=== PATIENT | male | born 1970 | race Caucasian/White ===

== ENCOUNTER 2023-11-17 12:18 | Inpatient (IN) ==
[2023-11-17 12:53] LABS: Appearance Urine Clear (Clear); Bilirubin Urine Negative (Negative); Blood Urine Negative (Negative); Color Urine Yellow; Glucose Urine UA Negative (Negative); Ketones Urine Negative (Negative); Leukocyte Esterase Urine Negative (Negative); Nitrite Urine Negative (Negative); Protein Urine Negative (Negative); Specific Gravity Urine 1.021 (1.000-1.030); Urobilinogen Urine Negative (Negative)
[2023-11-17 13:30] LABS: Basophils # (auto) 0.06 K/uL (0.00-0.20); Basophils % (auto) 1.1 %; Eosinophils # (auto) 0.06 K/uL (0.00-0.50); Eosinophils % (auto) 1.1 %; Hematocrit (blood only) 49.3 % (42.0-52.0); Hemoglobin 16.9 g/dl (14.0-18.0); Immature Granulocytes # (auto) 0.05 K/uL (0.01-0.20); Immature Granulocytes % (auto) 0.9 %; Lymphocytes # (auto) 1.79 K/uL (1.20-3.40); Lymphocytes % (auto) 33.5 %; Mean Corpuscular Hemoglobin 29.8 pg (25.0-34.0); Mean Corpuscular Hgb Conc 34.3 g/dL (32.0-36.0); Mean Corpuscular Volume 86.8 fL (80.0-100.0); Mean Platelet Volume 9.3 fL (9.4-12.4); Monocytes # (auto) 0.41 K/uL (0.11-0.59); Monocytes % (auto) 7.7 %; Neutrophils # (auto) 2.98 K/uL (1.40-6.50); Neutrophils % (auto) 55.7 %; Platelet Count 246 K/uL (130-400); RDW Coefficient of Variation 13.2 % (11.5-14.5); RDW Standard Deviation 41.3 fL (36.4-46.3); Red Blood Count 5.68 M/uL (4.70-6.10); White Blood Count 5.35 K/ul (4.8-10.8)
--- NOTE | 2023-11-17 13:31 | XRay Report ---
XR chest 1V not portable CLINICAL HISTORY: Chest pain, nonspecific TECHNIQUE: Single frontal radiograph of the chest was obtained. Comparison: None available at the time of this dictation. FINDINGS: No lines and tubes are seen. The cardiomediastinal silhouette is normal. The lungs are clear. No evid ence of pleural effusion or pneumothorax. IMPRESSION: No acute chest disease. ACT 112: Negative or not required by law. Electronically signed by: Ryan Michel M.D. 11/17/2023 1:29 PM
[2023-11-17 13:46] LABS: Albumin Level 4.2 gm/dl (3.4-5.0); Bilirubin,Total 0.5 mg/dl (0.2-1.0); Calcium 9.1 mg/dl (8.6-10.3); Potassium 4.3 mmol/L (3.5-5.1)
[2023-11-17 13:52] LABS: Albumin Globulin Ratio 1.1 (0.9-2); BUN Creatinine Ratio 16.7 (10-20); Creatinine Clr Calc Pharmacy 104.7 ml/min; Est GFR (African American) 85.2 ml/min; Est GFR (Non-African American) 73.5 ml/min; Globulin 3.7 gm/dl (2.5-4.0); Total Protein 7.9 gm/dl (6.0-8.3)
[2023-11-17 13:54] LABS: INR 0.9 (0.9-1.1); Partial Thromboplastin Time 26 Seconds (21-31); Prothrombin Time 10.3 Seconds (9.0-12.0)
[2023-11-17 13:57] LABS: Troponin I High Sensitivity 10.8 pg/ml (0-20)
[2023-11-17] MEDS: hydrALAZINE HCL 20 MG/ML VIAL IV ONE (14:09)
[2023-11-17 14:14] LABS: Magnesium 2.3 mg/dl (1.7-2.4)
--- NOTE | 2023-11-17 14:43 | Cardiology Consultation ---
Date of Consultation November 17, 2023 Assessment & Plan (1) Complete heart block: (2) Fatigue: (3) Hypertension: Plan Patient found to have CHB yesterday during PCP office visit. Declined ER yesterday and presented here today. EKG again demonstrating CHB. No significant symptoms other than generalized fatigue x several months. Labs thus far are unremarkable. Lyme negative. HS troponin unremarkable. CBC and CMP WNL. Normal electrolytes TSH is pending Patient significantly hypertensive. Non compliant with outpatient losartan. No symptoms. Resume losartan 100 and amlodipine initiated at 5 mg Titrate as needed. Already received hydralazine 5 mg IV. Avoid AV margo blocking agents right now with CHB. Echocardiogram is pending. Further recommendations pending evaluation with Dr. Rothman. Case discussed with Dr. Rothman I spent a total of 45 minutes on the date of service in preparation, delivery, and documentation of the care provided to this patient, excluding any time spent in the performance of separately billed services. Ana Paula Haque PA-C Department of Cardiology, [facility] This chart was completed in part utilizing Speech Voice Recognition Software. Grammatical errors, random word insertions, pronoun errors, and incomplete sentences are an occasional consequence of this system due to software limitations, ambient noise, and hardware issues. Any formal questions or concerns about the content, text, or information contained within the body of this dictation should be directly addressed to the provider for clarification. Supervising Physician Co-Signing Physician Notes I have personally performed a history and physical examination on the patient. I have reviewed the advance practitioner's documentation, and I agree with, and take responsibility for the plan of care. 53-year-old male presented to his primary care physician office yesterday for routine evaluation. Complaints of fatigue and decreased stamina. Significant bradycardia with ECG evidence of complete heart block noted. ER evaluation recommended, however, patient declined yesterday 11/16/2023. Agreed to come to the hospital today for further evaluation and treatment. ECG again confirms presence of third-degree AV block, with right bundle branch block. Heart rate in the 30s. Hypertensive on presentation with systolic blood pressure in excess of 200 mmHg. Denies chest pain or unusual shortness of breath. Admits to episodes of lightheadedness and dizziness more than 3 months ago however no recent symptoms reported. Intermittently noncompliant with antihypertensive therapies. Baseline TSH, and Lyme screen within normal limits. Other baseline labs including CBC and comprehensive metabolic panel within acceptable range. No obvious reversible causes heart block identified. Preliminary review of bedside echocardiogram demonstrates preserved LV systolic function, no significant valvular pathology, mild concentric left ventricular hypertrophy, no evidence of pulmonary hypertension or pericardial effusion. Patient will require pacemaker implantation. Electrophysiology consulted. I spent a total of 30 minutes on the date of service in preparation, delivery, and documentation of the care provided to this patient, excluding any time spent in the performance of separately billed services. History of Present Illness Reason for Consultation: Complete Heart Block Requesting Physician: Dr. Almeida Attending Physician: Dr. Rothman History of Present Illness Patient is a 53 year old male who went to see PCP yesterday for yearly follow up regarding HTN. He was found to be bradycardic on vital signs. EKG obtained demonstrating complete heart block with ventricular escape rhythm at 38 bmp. BP was also significantly hypertensive. He reports non compliance with losartan, only taking it "occasionally" It was advised patient come to the ER, but patient declined, stating he would come today. No recent illness, rashes, tick bites. He reports increased fatigue over the last few months but no other symptoms. No chest pain or dyspnea. No lightheadedness. No syncope or near syncope. He arrives today to the ER, and EKG once again confirms CHB with HR in the 30's. He denies acute symptoms today. Mild fatigue noted. No headache or vision changes. Labs are unremarkable thus far including CBC, BMP, electrolytes, lyme testing. TSH is pending. BP significantly elevated on arrival. Treated with IV hydralazine. Patient denies personal history of cardiovascular disease. He is to take losartan 100 mg daily at home for HTN but is non compliant. Amlodipine was added yesterday for BP but did not start. Other history includes: 1. Hypertension 2. Obesity 3. Chronic alcohol use 4. Chronic tobacco abuse Allergies Allergy/AdvReac Type Severity Reaction Status Date / Time No Known Allergies Allergy Unverified 11/17/23 12:29 Home Medications Medication Instructions Recorded Confirmed Type allopurinol 100 mg tablet 100 mg PO DAILY 11/17/23 11/17/23 History amlodipine 5 mg tablet 5 mg PO DAILY 11/17/23 11/17/23 History colchicine 0.6 mg tablet 0.6 mg PO DAILY 11/17/23 11/17/23 History duloxetine 30 mg capsule,delayed 30 mg PO DAILY 11/17/23 11/17/23 History release losartan 100 mg tablet 100 mg PO DAILY 11/17/23 11/17/23 History Patient History Social History Smoking Status: Current every day smoker Tobacco Type: Cigarettes Hx Substance Use: Yes Preferred Language: Romanian Feels Safe at Home: Yes Review of Systems Review of Systems: All systems reviewed & are unremarkable except as noted in HPI & below Physical Exam Constitutional: WD/WN, vitals as above + obese; no acute distress Respiratory: no labored breathing and no cough Auscultation: + diminished lung sounds; no crackles and no rales Cardiovascular: Rate/Rhythm: regular rhythm and + bradycardic Heart Sounds: no murmur (distant heart sounds but no audible murmur) Vessels: no JVD Extremities: no edema Gastrointestinal (Abdomen): normal bowel sounds, soft, nontender, no hepatosplenomegaly Skin: no rashes, warm and dry Neurologic: PERRL, EOMI, accommodation nl, no face palsy, no dysarthria Psychiatric: A+Ox3, euthymic affect Results & Data Vital Signs (Past 12 Hours) Vital Signs Temp Pulse Pulse Resp BP BP Pulse Ox 11/17/23 14:19 39 L 11/17/23 14:02 39 L 20 239/87 H 97 11/17/23 13:55 11/17/23 13:53 40 L 20 97 11/17/23 12:29 36 C L 43 L 20 239/93 H 99 O2 Del Method 11/17/23 14:19 11/17/23 14:02 Room Air 11/17/23 13:55 Room Air 11/17/23 13:53 Room Air 11/17/23 12:29 Room Air Laboratory Results Cardiac Enzymes 11/17/23 Range/Units 13:00 AST 31 (13-39) U/L Troponin I High Sens 10.8 (0-20) pg/ml Coagulation 11/17/23 Range/Units 13:00 PT 10.3 (9.0-12.0) Seconds APTT 26 (21-31) Seconds CBC 11/17/23 Range/Units 13:00 WBC 5.35 (4.8-10.8) K/ul RBC 5.68 (4.70-6.10) M/uL Hgb 16.9 (14.0-18.0) g/dl Hct 49.3 (42.0-52.0) % Plt Count 246 (130-400) K/uL Neut # (Auto) 2.98 (1.40-6.50) K/uL Lymph # (Auto) 1.79 (1.20-3.40) K/uL [place] # (Auto) 0.41 (0.11-0.59) K/uL Eos # (Auto) 0.06 (0.00-0.50) K/uL Baso # (Auto) 0.06 (0.00-0.20) K/uL Comprehensive Metabolic Panel 11/17/23 Range/Units 13:00 Sodium 136 (136-145) mmol/L Potassium 4.3 (3.5-5.1) mmol/L Chloride 102 (98-107) mmol/L Carbon Dioxide 22 (21-32) mmol/L BUN 19 (6-23) mg/dl Creatinine 1.14 (0.6-1.4) mg/dl Glucose 124 H (70-99(Fasting)) mg/dl Calcium 9.1 (8.6-10.3) mg/dl AST 31 (13-39) U/L ALT 25 (7-52) U/L Alkaline Phosphatase 85 (34-104) U/L Total Protein 7.9 (6.0-8.3) gm/dl Albumin 4.2 (3.4-5.0) gm/dl Intake and Output 11/16/23 11/17/23 11/17/23 22:59 06:59 14:59 Other: Weight 124.2 kg Weight Measurement Method Chair Scale Patient Weight 11/18/23 06:59 Weight 124.2 kg Diagnostic Findings Telemetry reviewed: CHB with HR in the 40's EKG on arrival to the ER: CHB with RBBB Inferolateral T wave inversions EKG reviewed from 11/16/23: CHB with ventricular escape at 38 bmp RBBB Possible inferolateral T wave inversions Echocardiogram pending Chest xray: No acute process Medications Administered Medications allopurinol 100 mg tablet 100 mg PO DAILY 11/17/23 [History Confirmed 11/17/23] amlodipine 5 mg tablet 5 mg PO DAILY 11/17/23 [History Confirmed 11/17/23] colchicine 0.6 mg tablet 0.6 mg PO DAILY 11/17/23 [History Confirmed 11/17/23] duloxetine 30 mg capsule,delayed release 30 mg PO DAILY 11/17/23 [History Confirmed 11/17/23] losartan 100 mg tablet 100 mg PO DAILY 11/17/23 [History Confirmed 11/17/23]
[2023-11-17] MEDS ORDERED: ALUMINUM/MAGNESIUM SUSP 30 ML UDC PO PRN (14:59)
[2023-11-17] MEDS ORDERED: ONDANSETRON INJ 2 MG/ML 2 ML VIAL IV PRN (14:59)
[2023-11-17] MEDS ORDERED: POLYETHYLENE (MIRALAX) 17 GM PACK PO PRN (14:59)
[2023-11-17] MEDS ORDERED: ACETAMINOPHEN 325 MG TAB PO PRN (14:59)
[2023-11-17 15:02] LABS: Thyroid Stimulating Hormone 1.665 uIu/ml (0.300-4.500)
--- NOTE | 2023-11-17 15:22 | History & Physical Report ---
Date of Service November 17, 2023 Assessment & Plan (1) Complete heart block: Plan 53-year-old male with PMH of idiopathic chronic gout, HTN, primary osteoarthritis/chronic knee pain, obese class II was sent to the ED at referral of PCP office for high degree heart block and bradycardia, asymptomatic. He is being managed for the following: complete heart block Bradycardia 11/16/2023 EKG at PCP office with complete heart block with idioventricular es cape rhythm with marked bradycardia. Ventricular rate 38, atrial rate 100, QRS duration 162, QTc 456. Patient denies any symptoms, loss of consciousness, chest pain/palpitation/dizziness. Patient reports feeling fatigue for about 2 months. Admitting labs including CBC and BMP and LFT and urine analysis fairly normal Anaplasma smear negative, Lyme disease screen negative.Troponin 10.8. TSH WNL CXR with no acute finding. admitting EKG redemonstrated CHB echo, plan is to take him to the OR for pacer placement today. Cardiology on board, appreciate recommendation. Hypertensive urgency: Blood pressure at 239/93 at presentation, received IV hydralazine at ED, avoid beta-case given CHB. Continue home blood pressure medication, hydralazine as needed for blood pressure management. Blood pressure yesterday was 150/80 mmHg at PCP office. Heart healthy diet/low-sodium diet when able. Continue to titrate medication. other chronic medical conditions: Chronic gout, chronic knee pain - continue with/resume home meds as and when able. DVT prophylaxis: SCDs today, heparin subcu from tomorrow. Pacer placement today. 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 Patient was seen at PCP office yesterday, recommended ED evaluation yesterday, patient chose to come today. Patient denies any symptoms/loss of consciousness/chest pain/palpitations/dizziness/shortness of breath. Patient denies any fever/cough/sore throat/abdominal pain/acute changes in his bowel or bladder habits/acute changes in his appetite. Patient reports compliance with medication but does not know what medications he takes. Hence outpatient chart was reviewed for current medications. He takes amlodipine 5 mg daily in the morning, losartan 100 mg daily in the morning, duloxetine 30 mg daily in the morning, allopurinol 100 mg daily in the morning. Plan of care discussed in detail with the patient, he voiced understanding and was agreeable. Discussed with Patient's RN, patient is being taken to [facility] for pacer placement. Patient reports not eating anything in the morning, hence is NPO. Full code as per my discussion with the patient. Allergies Allergy/AdvReac Type Severity Reaction Status Date / Time No Known Allergies Allergy Unverified 11/17/23 12:29 Home Medications Medication Instructions Recorded Confirmed Type allopurinol 100 mg tablet 100 mg PO DAILY 11/17/23 11/17/23 History amlodipine 5 mg tablet 5 mg PO DAILY 11/17/23 11/17/23 History colchicine 0.6 mg tablet 0.6 mg PO DAILY 11/17/23 11/17/23 History duloxetine 30 mg capsule,delayed 30 mg PO DAILY 11/17/23 11/17/23 History release losartan 100 mg tablet 100 mg PO DAILY 11/17/23 11/17/23 History Past Med/Surg History Problem List (Updated 11/17/23 @ 15:03 by Ana Paula Haque PA-C) Hypertension Fatigue Complete heart block Social History Smoking Status: Current every day smoker Tobacco Type: Cigarettes Hx Substance Use: Yes Preferred Language: Maldivian Feels Safe at Home: Yes Review of Systems Review of Systems: Negative otherwise mentioned in HPI. Physical Exam Physical Exam: GENERAL: Alert and oriented x3. NAD, on RA. Obese class II. HEENT: No pallor, no icterus. Pupils equal, round and reactive to light. Oral mucosa moist. NECK: No JVD, no neck masses. HEART: S1 and S2 heard. Regular rate and rhythm. Bradycardia. No murmur, no gallop. RESPIRATORY SYSTEM: Normal AP diameter. No accessory muscle use. No wheezing, no crackles. ABDOMEN: Soft, bowel sounds present, nontender, no distention. CENTRAL NERVOUS SYSTEM: No facial droop. Speech is clear. Obeys simple commands. Moves extremities. EXTREMITIES: No edema, no erythema seen. Results & Data Results & Data Vital Signs (Past 12 Hours) Vital Signs Temp Pulse Pulse Resp BP BP Pulse Ox 11/17/23 14:19 39 L 11/17/23 14:02 39 L 20 239/87 H 97 11/17/23 13:55 11/17/23 13:53 40 L 20 97 11/17/23 12:29 36 C L 43 L 20 239/93 H 99 O2 Del Method 11/17/23 14:19 11/17/23 14:02 Room Air 11/17/23 13:55 Room Air 11/17/23 13:53 Room Air 11/17/23 12:29 Room Air
[2023-11-17] MEDS: ceFAZolin 330 MG/ML 1 GM VIAL ONE (15:45)
[2023-11-17] MEDS: BUPIVACAINE 0.25% PF 30 ML VIAL ONE (16:49)
[2023-11-17] MEDS: fentaNYL citrate PF 100 MCG/2 ML VIAL ONE (16:50)
[2023-11-17] MEDS: VANCOMYCIN HCL 1000MG/20ML VIAL ONE (16:50)
[2023-11-17] MEDS: MIDAZOLAM HCL 5 MG/ML 1 ML VIAL ONE (16:50)
[2023-11-17] MEDS: LIDOCAINE 1% LOCAL 20 ML VIAL ONE (16:50)
--- NOTE | 2023-11-17 16:50 | Emergency Department Note ---
Impression & Plan Complete heart block, Hypertension ED Provider Note CHIEF COMPLAINT: Shortness of breath, abnormal EKG HISTORY OF PRESENT ILLNESS: This 53-year-old male patient with past medical history of hypertension, obesity, mood disorder presents to the emergency department with complaints of abnormal EKG after being seen by his PCP yesterday. The patient was referred to the emergency department yesterday however he refused. He signed out AMA from his PCPs office. Today his got off of work so they decided to come to the emergency department for evaluation. Patient denies any syncopal episodes or chest pain. He has been feeling some shortness of breath periodically. He does go outside quite a bit per his , but has no known tick bites. REVIEW OF SYSTEMS: A review of systems was performed with positives and pertinent negatives listed in the history of present illness. 10 systems were reviewed and are otherwise negative. ALLERGIES: see below MEDICATIONS: see below PMH: see below SOCIAL HISTORY: see below DDx: Cardiac arrhythmia, electrolyte abnormality, dehydration, acute coronary syndrome, metabolic abnormality, among others. PHYSICAL EXAM: Vital signs reviewed. General: Well-appearing 53-year-old male, in no significant distress. HEENT: No scleral icterus, PERRLA, neck supple. Atraumatic. Cardiovascular: Bradycardic and irregular. Pulmonary: Clear to auscultation bilaterally, normal work of breathing. Abdomen: Soft, obese, nontender, nondistended, positive bowel sounds. Musculoskeletal: Atraumatic, no peripheral edema. Neurologic: Patient awake alert and oriented x 3, speech is clear Skin: Warm, dry, no rash EMERGENCY DEPARTMENT COURSE/MDM: This pt was evaluated and appeared to be in no distress. IV access was obtained and lab work was drawn. Pt was placed on the air sampling and monitoring and noted to be in a complete heart block. EKG confirms.Pt is noted to be hypertensive and given 5 mg IV hydralazine. Lab work reveals a neg lyme, normal TSH and no significant electrolyte abnl. Pt was d/w Dr. Rothman of cardiology and the hospitalist service who will evaluate the pt for further management. He will RTED for worsening of symptoms or any medical concerns. MONITORING: An order for cardiac monitoring was placed and the patient is noted to be in a complete heart block at 40 beats per minute. RADIOLOGY: Chest x-ray to my interpretation reveals no evidence of focal lung consolidation or failure. EKG: To my interpretation reveals a complete heart block at 43 bpm. Right bundle branch block, QTc of 436. T wave abnormality, no previous EKGs available. DISPOSITION: Admission Past Med/Surg History Problem List (Updated 11/19/23 @ 20:07 by Brooklyn Almeida MD) Hypertension (Acute) Fatigue Complete heart block (Acute) Social History Smoking Status: Current every day smoker Tobacco Type: Cigarettes Hx Alcohol Use: Yes Alcohol type: beer Hx Substance Use: Yes Preferred Language: Armenian Communication Ability: Effective Soft Sugar Supervisor Required: No Beliefs That Will Affect Care: None Current Living Situation: Family Feels Safe at Home: Yes Allergies Allergies Allergy/AdvReac Type Severity Reaction Status Date / Time chlorpromazine AdvReac Muscle Pain Verified 11/17/23 19:36 [From Thorazine] Home Meds Home Medications Medication Instructions Recorded Confirmed allopurinol 100 mg tablet 100 mg PO DAILY 11/17/23 11/17/23 amlodipine 5 mg tablet 5 mg PO DAILY 11/17/23 11/17/23 colchicine 0.6 mg tablet 0.6 mg PO DAILY 11/17/23 11/17/23 duloxetine 30 mg capsule,delayed 30 mg PO DAILY 11/17/23 11/17/23 release losartan 100 mg tablet 100 mg PO DAILY 11/17/23 11/17/23 Previous Rx's Medication Instructions Recorded metoprolol succinate 25 mg 25 mg PO QAM 30 days #30 tabs 11/18/23 tablet,extended release 24 hr Results & Data (ED) Vital Signs Vital Signs - 24 hr 11/17/23 12:29 11/17/23 13:53 11/17/23 13:55 Temperature 36 C L Temperature Source Temporal Artery Scan Pulse Rate 43 L 40 L Pulse Rate [Apical] Pulse Rhythm Regular Pulse Rhythm [Apical] Pulse Strength Normal Pulse Strength [Apical] Respiratory Rate 20 20 Respiratory Effort / Characteristics Non-Labored Spontaneous Respiratory Depth Normal Respiratory Pattern Regular Blood Pressure 239/93 H Blood Pressure [Left Arm] Blood Pressure Mean 141 Blood Pressure Mean [Left Arm] Blood Pressure Position Sitting Blood Pressure Position [Left Arm] Pulse Oximetry 99 97 Oxygen Delivery Method Room Air Room Air Room Air Sepsis Recent Fever Within 48 Hours No Sepsis New/Unexplained Change in Mental Status No Sepsis Action Taken by Nursing No Action Required 11/17/23 14:02 11/17/23 14:19 11/17/23 15:11 Temperature Temperature Source Pulse Rate 39 L Pulse Rate [Apical] 39 L 39 L Pulse Rhythm Pulse Rhythm [Apical] Regular Pulse Strength Pulse Strength [Apical] Normal Respiratory Rate 20 Respiratory Effort / Characteristics Non-Labored Non-Labored Spontaneous Normal for Patient Respiratory Depth Normal Normal Respiratory Pattern Regular Regular Blood Pressure Blood Pressure [Left Arm] 239/87 H 213/81 H Blood Pressure Mean Blood Pressure Mean [Left Arm] 137 125 Blood Pressure Position Blood Pressure Position [Left Arm] Sitting Lying Pulse Oximetry 97 97 Oxygen Delivery Method Room Air Room Air Sepsis Recent Fever Within 48 Hours Sepsis New/Unexplained Change in Mental Status Sepsis Action Taken by [facility] Medications Current Medication List: was personally reviewed by me Laboratory Data Attestation: I reviewed the patient's lab results. 11/17/23 13:00 11/17/23 13:00 Lab Results 11/17/23 11/17/23 Range/Units 12:36 13:00 WBC 5.35 (4.8-10.8) K/ul RBC 5.68 (4.70-6.10) M/uL Hgb 16.9 (14.0-18.0) g/dl Hct 49.3 (42.0-52.0) % MCV 86.8 (80.0-100.0) fL MCH 29.8 (25.0-34.0) pg MCHC 34.3 (32.0-36.0) g/dL RDW Std Deviation 41.3 (36.4-46.3) fL RDW Coeff of Ashley 13.2 (11.5-14.5) % Plt Count 246 (130-400) K/uL MPV 9.3 L (9.4-12.4) fL Immature Gran % (Auto) 0.9 % Neut % (Auto) 55.7 % Lymph % (Auto) 33.5 % [place] % (Auto) 7.7 % Eos % (Auto) 1.1 % Baso % (Auto) 1.1 % Neut # (Auto) 2.98 (1.40-6.50) K/uL Lymph # (Auto) 1.79 (1.20-3.40) K/uL [place] # (Auto) 0.41 (0.11-0.59) K/uL Eos # (Auto) 0.06 (0.00-0.50) K/uL Baso # (Auto) 0.06 (0.00-0.20) K/uL Immature Gran # (Auto) 0.05 (0.01-0.20) K/uL PT 10.3 (9.0-12.0) Seconds INR 0.9 (0.9-1.1) APTT 26 (21-31) Seconds PTT Ratio 1.0 Sodium 136 (136-145) mmol/L Potassium 4.3 (3.5-5.1) mmol/L Chloride 102 (98-107) mmol/L Carbon Dioxide 22 (21-32) mmol/L Anion Gap 12 H (3-11) BUN 19 (6-23) mg/dl Creatinine 1.14 (0.6-1.4) mg/dl Est Cr Clr Drug Dosing 104.7 ml/min Est GFR ( Amer) 85.2 ml/min Est GFR (Non-Af Amer) 73.5 ml/min BUN/Creatinine Ratio 16.7 (10-20) Glucose 124 H (70-99(Fasting)) mg/dl Calcium 9.1 (8.6-10.3) mg/dl Magnesium 2.3 (1.7-2.4) mg/dl Total Bilirubin 0.5 (0.2-1.0) mg/dl AST 31 (13-39) U/L ALT 25 (7-52) U/L Alkaline Phosphatase 85 (34-104) U/L Troponin I High Sens 10.8 (0-20) pg/ml Total Protein 7.9 (6.0-8.3) gm/dl Albumin 4.2 (3.4-5.0) gm/dl Globulin 3.7 (2.5-4.0) gm/dl Albumin/Globulin Ratio 1.1 (0.9-2) TSH 1.665 (0.300-4.500) uIu/ml Urine Color Yellow Urine Appearance Clear (Clear) Urine pH 5.0 (4.5-7.5) Ur Specific [place] 1.021 (1.000-1.030) Urine Protein Negative (Negative) Urine Glucose (UA) Negative (Negative) Urine Ketones Negative (Negative) Urine Blood Negative (Negative) Urine Nitrite Negative (Negative) Urine Bilirubin Negative (Negative) Urine Urobilinogen Negative (Negative) Ur Leukocyte Esterase Negative (Negative) Anaplasma Smear See Comment Lyme Disease Screen Negative (Negative) Administered Medications Discontinued Medications Allopurinol (Allopurinol 100 Mg Tab) 100 mg PO DAILY [facility] Stop: 12/18/23 08:59 Last Admin: 11/18/23 08:42 Dose: 100 mg Documented By: MARY Amlodipine Besylate (Amlodipine Besylate 5 Mg Tab) 5 mg PO DAILY [facility] Stop: 12/18/23 08:59 Last Admin: 11/18/23 08:42 Dose: 5 mg Documented By: MARY Bupivacaine HCl (Bupivacaine 0.25% Pf 30 Ml Vial) Confirm Administered Dose 30 ml .ROUTE .STK-MED [facility] Stop: 11/17/23 15:00 Last Admin: 11/17/23 16:49 Dose: 30 ml Documented By: VIRIDIANA Cefazolin Sodium (Cefazolin 330 Mg/Ml 1 Gm Vial) Confirm Administered Dose 2,970 mg .ROUTE .STK-[facility] Stop: 11/17/23 15:24 Last Admin: 11/17/23 15:45 Dose: 2,970 mg Documented By: [employer]DER Clonidine HCl (Clonidine Hcl 0.1 Mg Tab) 0.1 mg PO NOW [facility] Stop: 11/18/23 00:08 Last Admin: 11/18/23 00:15 Dose: 0.1 mg Documented By: AM Colchicine (Colchicine 0.6 Mg Tab) 0.6 mg PO DAILY [facility] Stop: 12/18/23 08:59 Last Admin: 11/18/23 08:43 Dose: 0.6 mg Documented By: MARY Duloxetine HCl (Duloxetine Hcl 30 Mg Cap) 30 mg PO DAILY [facility] Stop: 12/18/23 08:59 Last Admin: 11/18/23 08:43 Dose: 30 mg Documented By: MARY Fentanyl Citrate (Fentanyl Citrate Pf 100 Mcg/2 Ml Vial) Confirm Administered Dose 100 mcg .ROUTE .STK-MED ONE Stop: 11/17/23 15:24 Last Admin: 11/17/23 16:50 Dose: 100 mcg Documented By: [employer] Folic Acid (Folic Acid 1 Mg Tab) 1 mg PO QAM [facility] Stop: 12/18/23 08:59 Last Admin: 11/18/23 08:42 Dose: 1 mg Documented By: MARY Gabapentin (Gabapentin 600 Mg Tab) 600 mg PO NOW ONE Stop: 11/17/23 20:02 Last Admin: 11/17/23 21:07 Dose: 600 mg Documented By: AM Gabapentin (Gabapentin 100 Mg Cap) 100 mg PO Q6H [facility] Stop: 11/18/23 12:01 Last Admin: 11/18/23 11:07 Dose: 100 mg Documented By: Admin: 11/18/23 06:24 Dose: 100 mg Documented By: JUDITH Hydralazine HCl (Hydralazine Hcl 20 Mg/Ml Vial) 5 mg IV NOW ONE Stop: 11/17/23 14:03 Last Admin: 11/17/23 14:09 Dose: 5 mg Documented By: JEANA Hydralazine HCl (Hydralazine Hcl 20 Mg/Ml Vial) 5 mg IV Q4H PRN PRN Reason: SBP > 190 mmHg Stop: 12/17/23 15:21 Last Admin: 11/17/23 18:06 Dose: 5 mg Documented By: PRATIBHA Cefazolin Sodium (Ancef 2000mg) 2,000 mg in 15 mls @ 3.75 mls/min IV ONE ONE; Protocol Stop: 11/17/23 23:33 Last Admin: 11/18/23 00:01 Dose: 3.75 mls/min Documented By: JUDITH Multivitamins 10 ml/ Thiamine HCl 100 mg/ Folic Acid 1 mg/Sodium Chloride 1,011.2 mls @ 500 mls/hr IV .Q2H2M ONE Stop: 11/17/23 22:16 Last Infusion: 11/17/23 23:17 Dose: Infused Documented By: Admin: 11/17/23 21:07 Dose: 500 mls/hr Documented By: JUDITH Lorazepam 1 mg/ Syringe 1 mls @ 2 mls/min IV UD PRN; Protocol PRN Reason: EtOH Withdrawal AWSS Score 6,7 Stop: 12/17/23 20:00 Last Admin: 11/17/23 21:42 Dose: 2 mls/min Documented By: JUDITH Lidocaine HCl (Lidocaine 1% Local 20 Ml Vial) Confirm Administered Dose 20 ml .ROUTE .STK-MED ONE Stop: 11/17/23 15:00 Last Admin: 11/17/23 16:50 Dose: 20 ml Documented By: VIRIDIANA Lorazepam (Lorazepam 1 Mg Tab) 1 mg PO NOW [facility] Stop: 11/18/23 00:02 Last Admin: 11/18/23 00:15 Dose: 1 mg Documented By: AM Losartan Potassium (Losartan Potassium 50 Mg Tab) 100 mg PO DAILY [facility] Stop: 12/18/23 08:59 Last Admin: 11/18/23 08:42 Dose: 100 mg Documented By: MARY Melatonin (Melatonin 3 Mg Tab) 3 mg PO HS PRN PRN Reason: Sleep Stop: 12/18/23 00:00 Last Admin: 11/18/23 00:18 Dose: 3 mg Documented By: AM Metoprolol Succinate (Metoprolol Succ 25mg Ext Rel Tab) [facility] Stop: 12/18/23 09:14 Last Admin: 11/18/23 11:07 Dose: 25 mg Documented By: MARY Midazolam HCl (Midazolam Hcl 5 Mg/Ml 1 Ml Vial) Confirm Administered Dose 5 mg .ROUTE .STK-MED ONE Stop: 11/17/23 15:23 Last Admin: 11/17/23 16:50 Dose: 5 mg Documented By: CATIA Sterile Water (Water, Sterile For Inj 10 Ml Vial) Confirm Administered Dose 10 ml .ROUTE .STK-MED ONE Stop: 11/17/23 15:00 Last Admin: 11/17/23 18:01 Dose: Not Given Documented By: PRATIBHA Thiamine HCl (Thiamine Hcl 100 Mg Tab) [facility] [place] Stop: 12/18/23 08:59 Last Admin: 11/18/23 08:41 Dose: 100 mg Documented By: MARY Vancomycin HCl (Vancomycin Hcl 1000mg/20ml Vial) Confirm Administered Dose 50 mg .ROUTE .STK-MED ONE Stop: 11/17/23 15:00 Last Admin: 11/17/23 16:50 Dose: 50 mg Documented By: ABHISHEKK Imaging Data Radiologist's Impression: Chest X-Ray 11/17/23 12:34 XR chest 1V not portable CLINICAL HISTORY: Chest pain, nonspecific TECHNIQUE: Single frontal radiograph of the chest was obtained. Comparison: None available at the time of this dictation. FINDINGS: No lines and tubes are seen. The cardiomediastinal silhouette is normal. The lungs are clear. No evidence of pleural effusion or pneumothorax. IMPRESSION: No acute chest disease. ACT 112: Negative or not required by law. Electronically signed by: Ryan Michel M.D. 11/17/2023 1:29 PM Discharge Plan Visit Data Chief Complaint: Bradycardia Stated Complaint: REFERRED BY DR/PULSE 38 ED Provider: Brooklyn Almeida Discharge Problem: Complete heart block, Hypertension Patient Disposition: Admitted As Inpatient Discharge Instructions Interventions: ED Discharge Assessment Last Done: 11/17/23 15:05 Discharge Problem: Hypertension Qualifiers: Hypertension type: primary hypertension Qualified Code(s): I10 - Essential (primary) hypertension
[2023-11-17] MEDS ORDERED: oxyCODONE HCL IR 5 MG TAB (IMMEDIATE RELEASE) PO PRN (17:02)
--- NOTE | 2023-11-17 17:02 | Electrophysiology Report ---
Date of Service November 17, 2023 Electrophysiology Procedure Electrophysiology Procedure Report Procedure performed: Implantation of dual-chamber permanent pacemaker with left bundle pacing lead Staff drafter assistant: Camron Jama MD Indication: The patient is a 53-year-old gentleman who presents to the emergency room with bradycardia and complete heart block. He was felt to be a good candidate for permanent pacemaker due to symptomatic nonreversible AV node dysfunction. Dual-chamber device was selected as he is currently in sinus rhythm which to maintain AV synchrony. Procedure in detail: The patient was informed of the risks benefits and alternatives to the intended procedure and she wished to proceed. She was taken to the electrophysiology suite in a fasting state. A preoperative antibiotic had been administered. The patient was monitored electrocardiographically throughout today's procedure and conscious sedation was administered per protocol. The left upper pectoral area is prepped and draped in usual sterile fashion. This area was anesthetized using subcutaneous administration of a xylocaine solution. An incision was made at this site and carried down to the prepectoralis fascia using sharp dissection. Electrocautery was also employed for dissection as well as for hemostasis. A device pocket was fashioned tissues above the pectoralis muscle. Subsequent to this maneuver the left axillary vein was accessed using modified Seldinger technique. A sheath was placed over guidewire and used facilitate passage of the guiding catheter for mapping of the interventricular septum. Once appropriate location was identified the pacing lead was advanced into the interventricular septum under fluoroscopic guidance. Adequate electrophysiologic characteristics were obtained prior to removal of the catheter and sheath. Proximal portion lead was then sutured to prepectoralis fascia using nonabsorbable suture. A sheath was placed over the remaining guidewire and used facilitate passage of a pacing lead to the right atrium under fluoroscopic guidance. Adequate sensing threshold parameters were obtained prior to active fixation of this lead to the endocardial surface. The proximal portion lead was then sutured to prepectoralis fascia using nonabsorbable suture. The device pocket was irrigated with antibiotic solution. The leads were then attached to the device. The device and leads were then placed in the pocket and pocket was closed in 3 layers of absorbable suture. Steri-Strips and sterile dressing were applied. The device was tested noninvasively prior to conclusion the procedure. The patient tolerated procedure well there no i mmediate complications. Equipment used: New pulse generator: Title Specialist urturn. Model number:[id number] serial number [id number] Right atrial lead: Title Specialist [employer]. Model number: 5076 serial number [id number] Right ventricular lead: Title Specialist [employer]. Model number: 3830 serial number [id number] Measured data: Right atrial lead: P-waves measured 4.5 mV. Pacing threshold was 1.5 volts at 0.4 milliseconds with a pacing impedance of 684 Ohms Right ventricular lead: R-waves measured 8.5 mV. Pacing threshold 0.5 volts at 0.4 milliseconds with a pacing impedance of 855 Ohms Impression: Successful implantation of dual-chamber permanent pacemaker with left bundle pacing lead [facility] Electrophysiology codes Pacing Procedure 1: Pacin Insert/Replace Pacer A & V PG Moderate Sedation Codes Moderate Sedation Codes Procedure 1: Sedation/Anesthesia: 17611 Mod Sedation by the same physician;Init15 Min Child Age 5 & Up Procedure 2: Sedation/Anesthesia: 30497 Mod Sedation by the same physician; Ea [id number] Minutes
--- NOTE | 2023-11-17 17:02 | Post Anesthesia Assessment ---
Date of Service November 17, 2023 Post Sedation Assessment Vital Signs Temp Pulse Pulse Resp BP BP Pulse Ox 11/17/23 15:11 39 L 213/81 H 97 11/17/23 14:19 39 L 11/17/23 14:02 39 L 20 239/87 H 97 11/17/23 13:55 11/17/23 13:53 40 L 20 97 11/17/23 12:29 36 C L 43 L 20 239/93 H 99 O2 Del Method 11/17/23 15:11 Room Air 11/17/23 14:19 11/17/23 14:02 Room Air 11/17/23 13:55 Room Air 11/17/23 13:53 Room Air 11/17/23 12:29 Room Air Recovery Score Activity: Moves 4 extremities Respiration: Deep Breath/Cough Circulation: +/-50% PreAnes Value Consciousness: Fully Awake Oxygen Saturation: > 92% On Room Air Discharge Sedation Level of Care: Fast Track Phase II Post Sedation Plan On clinical assessment, the patient appears to have tolerated the sedation without complications. Patient is recovering as anticipated. Patient will continue to be monitored by nursing and may be discharged when sedation discharge criteria are met per below protocol. Upon Completions of procedure up to 15 minutes continue every 5 minute vital signs and the P.A.R. score; then discharge to a Phase I or Fast Track to Phase II per the following guidelines: * Discharge Patient to appropriate Phase II area if PAR is 8 or greater or return to pre- procedure baseline. The post - procedure orders will be as directed. * If PAR score is less than 8 or not return to pre-procedure baseline then patient will follow Phase I monitoring till PAR is reached for Phase II. The Phase I may be done in procedure room or may call to secure a Phase I area. * If naloxone or flumazenil are used for reversal, hold in Phase I for continued monitoring from when last reversal dose was given for a minimum of 60 minutes or longer pending the nurse and/or physician discretion of patient condition before discharge to Phase II. Please call the Sedation Physician to re-evaluate and complete post-note for discharge to Phase II area. Do NOT discharge from procedure sedation or Phase 1 until post- sedation evaluation note is complete by procedure /sedation MD Sedation Discharge Instructions to be given to the patient at discharge to home.
--- NOTE | 2023-11-17 17:32 | Electrocardiogram Report ---
Test Reason : Blood Pressure : / mmHG Vent. Rate : 043 BPM Atrial Rate : 000 BPM P-R Int : 000 ms QRS Dur : 136 ms QT Int : 516 ms P-R-T Axes : 000 -28 -30 degrees QTc Int : 436 ms Sinus tachycardia with complete heart block Right bundle branch block T wave abnormality, consider lateral ischemia Abnormal ECG No previous ECGs available Confirmed by Camron Jama ([id number]) on 11/17/2023 5:31:52 PM Referred By: Confirmed By:Scott Jama
[2023-11-17] MEDS: WATER, STERILE FOR INJ 10 ML VIAL ONE (18:01)
[2023-11-17] MEDS: hydrALAZINE HCL 20 MG/ML VIAL IV PRN (18:06)
[2023-11-17] MEDS ORDERED: LORazepam 2 MG in SYRINGE 1 ML IV PRN (20:01)
[2023-11-17] MEDS ORDERED: LORazepam 3 MG in SYRINGE 1.5 ML IV PRN (20:01)
[2023-11-17] MEDS ORDERED: LORazepam 1 MG in SYRINGE 0.5 ML IV PRN (20:01)
[2023-11-17] MEDS ORDERED: Ativan IV Alcohol Withdrawal--Active Protocol IV PRN (20:01)
[2023-11-17] MEDS ORDERED: GABAPENTIN 600MG ALCOHOL WITHDRAWAL LOAD PO STA (20:01)
[2023-11-17] MEDS: GABAPENTIN 600 MG TAB PO ONE (21:07)
[2023-11-17] MEDS: MULTI-VITAMIN INFUSION 10 ML, THIAMINE HCL 100 MG, FOLIC ACID 1 MG in SODIUM CHLORIDE 0... IV ONE (21:07)
[2023-11-17] MEDS: LORazepam 1 MG in SYRINGE 0.5 ML IV PRN (21:42)
[2023-11-18] MEDS: ceFAZolin 2000MG 2,000 MG/15 ML SYR IV ONE (00:01)
[2023-11-18] MEDS: LORazepam 1 MG TAB PO STA (00:15)
[2023-11-18] MEDS: cloNIDine HCL 0.1 MG TAB PO ONE (00:15)
[2023-11-18] MEDS: MELATONIN 3 MG TAB PO PRN (00:18)
[2023-11-18] MEDS: GABAPENTIN 100 MG CAP PO SCH (06:24)
--- NOTE | 2023-11-18 07:25 | Electrocardiogram Report ---
Test Reason : Blood Pressure : / mmHG Vent. Rate : 110 BPM Atrial Rate : 097 BPM P-R Int : 182 ms QRS Dur : 112 ms QT Int : 378 ms P-R-T Axes : 054 -30 117 degrees QTc Int : 511 ms Atrial-sensed ventricular-paced rhythm Abnormal ECG Confirmed by Camron Jama ([id number]) on 11/18/2023 7:25:23 AM Referred By: Sukumar Kennedy Confirmed By:Scott Jama
--- NOTE | 2023-11-18 08:08 | XRay Report ---
XR chest 2V PA/lateral HISTORY: 53 years-old Male EXACT TIME ORDERED Evaluate for pneumothorax and l status post placement of a dual-lead left subclavian pacer COMPARISON: Chest radiograph 11/17/2023 TECHNIQUE: PA and lateral views of the chest FINDINGS: Cardiac silhouette is unchanged in size. Status post placement of a dual lead left subclavian pacer. No postprocedural pneumothorax. No pleural effusion, airspace consolidation or pulmonary edema. Bones appear grossly intact. IMPRESSION: Status post placement of a dual-lead left subclavian pacer. No postprocedural pneumothora x identified. ACT 112: Negative or not required by law. The above report was generated using voice recognition software. It may contain grammatical, syntax o r spelling errors. Electronically signed by: Benigno Osei M.D. 11/18/2023 8:06 AM
[2023-11-18] MEDS: THIAMINE HCL 100 MG TAB PO SCH (08:41)
[2023-11-18] MEDS: allopurinoL 100 MG TAB PO SCH (08:42)
[2023-11-18] MEDS: LOSARTAN POTASSIUM 50 MG TAB PO SCH (08:42)
[2023-11-18] MEDS: FOLIC ACID 1 MG TAB PO SCH (08:42)
[2023-11-18] MEDS: amLODIPine BESYLATE 5 MG TAB PO SCH (08:42)
[2023-11-18] MEDS: DULoxetine HCL 30 MG CAP PO SCH (08:43)
[2023-11-18] MEDS: COLCHICINE 0.6 MG TAB PO SCH (08:43)
--- NOTE | 2023-11-18 09:20 | Cardiology Progress Note ---
Date of Service November 18, 2023 Assessment & Plan (1) Complete heart block: (2) Fatigue: (3) Hypertension: Plan Patient found to have CHB yesterday during PCP office visit. Declined ER yesterday and presented here today. EKG again demonstrating CHB. No significant symptoms other than generalized fatigue x several months. Labs thus far are unremarkable. Lyme negative. HS troponin unremarkable. CBC and CMP WNL. Normal electrolytes TSH is pending Patient significantly hypertensive. Non compliant with outpatient losartan. No symptoms. Resume losartan 100 and amlodipine initiated at 5 mg Titrate as needed. Already received hydralazine 5 mg IV. Avoid AV margo blocking agents right now with CHB. 11/19/23: Patient underwent [employer] dual chamber pacemaker yesterday, 11/17/[address] Jama. Tolerated procedure. Incision site clean and dry. No pain. Chest xray without pneumo. Interrogation pending this morning. Will need wound check in 1 week and follow up with device clinic at . Will arrange. BP remains uncontrolled, but trending downward. Continue losartan 100 mg daily Continue amlodipine 5 mg daily Add metoprolol 25 mg daily Recheck BP 1-2 hours after AM meds. Will also need outpatient ischemic work up. Will discuss/arrange at cardio f/u in 2-4 weeks once BP has improved No current anginal symptoms Likely to be discharged later today pending pacemaker interrogation and recheck of BP after AM meds. Case discussed with Dr. Brown I spent a total of 30 minutes on the date of service in preparation, delivery, and documentation of the care provided to this patient, excluding any time spent in the performance of separately billed services. Ana Paula Haque PA-C Department of Cardiology, [facility] This chart was completed in part utilizing Speech Voice Recognition Software. Grammatical errors, random word insertions, pronoun errors, and incomplete sentences are an occasional consequence of this system due to software limitations, ambient noise, and hardware issues. Any formal questions or concerns about the content, text, or information contained within the body of this dictation should be directly addressed to the provider for clarification. Admission and Anticipated Discharge Date Admission Date: November 17, 2023 Supervising Physician Co-Signing Physician Notes I have personally performed a history and physical examination on the patient. I have reviewed the advance practitioner's documentation, and I agree with, and take responsibility for the plan of care. 53-year-old male presented to his primary care physician office yesterday for routine evaluation. Complaints of fatigue and decreased stamina. Significant bradycardia with ECG evidence of complete heart block noted. Initially declined hospitalization then reported yesterday for further evaluation No obvious etiology of conduction system disease identified Patient underwent dual-chamber pacemaker insertion uneventfully with normal device function Blood pressures and atrial rates elevated with normal ventricular paced Plan as outlined above Patient insistent on discharge Will require outpatient follow-up with cardiology, pacemaker clinic Additional evaluation of ischemia possible not suggested by current presentation. May warrant cardiac MRI to exclude sarcoid but no findings on chest x-ray Low-dose beta-case will be added to control atrial rates and blood pressure I spent a total of 20 minutes on the date of service in preparation, delivery, and documentation of the care provided to this patient, excluding any time spent in the performance of separately billed services. Subjective Patient resting in bed. Feeling "Fine". Wants to go home. No discomfort at pacemaker site. Bandage clean and dry. Paced rhythm overnight. No chest pain, dyspnea, dizziness. no headache or vision changes. Review of Systems Review of Systems: All systems reviewed & are unremarkable except as noted in HPI & below Physical Exam Constitutional: WD/WN, vitals as above + obese; no acute distress Respiratory: no labored breathing and no cough Auscultation: + diminished lung sounds; no crackles and no rales Cardiovascular: Rate/Rhythm: regular rhythm and + bradycardic Heart Sounds: no murmur (distant heart sounds but no audible murmur) Vessels: no JVD Extremities: no edema Gastrointestinal (Abdomen): normal bowel sounds, soft, nontender, no hepatosplenomegaly Skin: no rashes, warm and dry Neurologic: PERRL, EOMI, accommodation nl, no face palsy, no dysarthria Psychiatric: A+Ox3, euthymic affect Results & Data Vital Signs (Past 12 Hours) Vital Signs Temp Pulse Pulse Resp BP Pulse Ox O2 Del Method 11/18/23 08:10 Room Air 11/18/23 07:47 36.8 C 91 H 18 158/105 H 96 Room Air 11/18/23 06:24 36.5 C 96 H 20 156/99 H 96 Room Air 11/18/23 04:03 86 20 130/94 11/18/23 02:17 37.0 C 92 H 19 126/90 93 Room Air 11/18/23 00:59 98 H 161/109 H 11/18/23 00:00 112 H 11/18/23 00:00 104 H 180/134 H 11/17/23 23:22 36.8 C 104 H 20 153/102 H 96 Room Air 11/17/23 22:54 36.7 C 108 H 17 173/117 H 96 Room Air 11/17/23 21:24 36.9 C 116 H 20 168/103 H 97 Room Air Laboratory Results Cardiac Enzymes 11/17/23 Range/Units 13:00 AST 31 (13-39) U/L Troponin I High Sens 10.8 (0-20) pg/ml Coagulation 11/17/23 Range/Units 13:00 PT 10.3 (9.0-12.0) Seconds APTT 26 (21-31) Seconds CBC 11/17/23 Range/Units 13:00 WBC 5.35 (4.8-10.8) K/ul RBC 5.68 (4.70-6.10) M/uL Hgb 16.9 (14.0-18.0) g/dl Hct 49.3 (42.0-52.0) % Plt Count 246 (130-400) K/uL Neut # (Auto) 2.98 (1.40-6.50) K/uL Lymph # (Auto) 1.79 (1.20-3.40) K/uL Craven # (Auto) 0.41 (0.11-0.59) K/uL Eos # (Auto) 0.06 (0.00-0.50) K/uL Baso # (Auto) 0.06 (0.00-0.20) K/uL Comprehensive Metabolic Panel 11/17/23 Range/Units 13:00 Sodium 136 (136-145) mmol/L Potassium 4.3 (3.5-5.1) mmol/L Chloride 102 (98-107) mmol/L Carbon Dioxide 22 (21-32) mmol/L BUN 19 (6-23) mg/dl Creatinine 1.14 (0.6-1.4) mg/dl Glucose 124 H (70-99(Fasting)) mg/dl Calcium 9.1 (8.6-10.3) mg/dl AST 31 (13-39) U/L ALT 25 (7-52) U/L Alkaline Phosphatase 85 (34-104) U/L Total Protein 7.9 (6.0-8.3) gm/dl Albumin 4.2 (3.4-5.0) gm/dl Intake and Output 11/17/23 11/18/23 11/18/23 22:59 06:59 14:59 Intake Total 300 / 1561.2 1261.2 / 1561.2 Balance 300 / 1561.2 1261.2 / 1561.2 Intake: IV 1011.2 / 1011.2 Multi-Vitamin Infusion 10 ml 1011.2 / 1011.2 Thiamine HCl 100 mg Folic Acid 1 mg In Sodium Chloride 0.9% 1, 000 ml @ 500 mls/hr IV .Q2H2M ONE Rx#:[id number] Oral 300 / 550 250 / 550 Other: # Unmeasured Voids 1 Weight 125 kg 125.3 kg Weight Measurement Method Built in Bedscale Standing Scale Diagnostic Findings Telemetry reviewed: atrial sensed, ventricular paced in the 90's EKG from 11/18/23: Atrial sensed ventricular paced rhythm. Device interrogation - pending from this AM Chest xray this morning reviewed S/P pacemaker implant. No active disease No pneumothorax Echo report reviewed dated 11/17/23: Normal LVEF at 60-65% Mild concentric LVH Trace TR No pulm hypertension Medications Administered Current Inpatient Medications Acetaminophen (Acetaminophen 325 Mg Tab) 650 mg PO Q4H PRN PRN Reason: Pain or Fever Stop: 12/17/23 14:58 Al Hydrox/Mg Hydrox/Simethicone (Aluminum/Magnesium Susp 30 Ml Udc) 15 ml PO Q4H PRN PRN Reason: Dyspepsia Stop: 12/17/23 14:58 Allopurinol (Allopurinol 100 Mg Tab) 100 mg PO DAILY LUIS FELIPE Stop: 12/18/23 08:59 Last Admin: 11/18/23 08:42 Dose: 100 mg Amlodipine Besylate (Amlodipine Besylate 5 Mg Tab) 5 mg PO DAILY LUIS FELIPE Stop: 12/18/23 08:59 Last Admin: 11/18/23 08:42 Dose: 5 mg Colchicine (Colchicine 0.6 Mg Tab) 0.6 mg PO DAILY LUIS FELIPE Stop: 12/18/23 08:59 Last Admin: 11/18/23 08:43 Dose: 0.6 mg Duloxetine HCl (Duloxetine Hcl 30 Mg Cap) 30 mg PO DAILY [facility] Stop: 12/18/23 08:59 Last Admin: 11/18/23 08:43 Dose: 30 mg Folic Acid (Folic Acid 1 Mg Tab) 1 mg PO QAM [facility] Stop: 12/18/23 08:59 Last Admin: 11/18/23 08:42 Dose: 1 mg Gabapentin (Gabapentin 100 Mg Cap) 100 mg PO Q6H LUIS FELIPE Stop: 11/18/23 12:01 Last Admin: 11/18/23 06:24 Dose: 100 mg Gabapentin (Gabapentin 400 Mg Cap) 400 mg PO Q24H LUIS FELIPE Stop: 11/19/23 20:16 Gabapentin (Gabapentin 600 Mg Tab) 600 mg PO Q24H LUIS FELIPE Stop: 11/18/23 20:16 Gabapentin (Gabapentin 100 Mg Cap) 200 mg PO Q24H LUIS FELIPE Stop: 11/20/23 20:16 Hydralazine HCl (Hydralazine Hcl 20 Mg/Ml Vial) 5 mg IV Q4H PRN PRN Reason: SBP > 190 mmHg Stop: 12/17/23 15:21 Last Admin: 11/17/23 18:06 Dose: 5 mg Lorazepam 1 mg/ Syringe 1 mls @ 2 mls/min IV ONE PRN; Protocol PRN Reason: EtoH Withdrawal AWSS 6-10 Lorazepam 1 mg/ Syringe 1 mls @ 2 mls/min IV UD PRN; Protocol PRN Reason: EtOH Withdrawal AWSS Score 6,7 Stop: 12/17/23 20:00 Last Admin: 11/17/23 21:42 Dose: 2 mls/min Lorazepam 2 mg/ Syringe 2 mls @ 2 mls/min IV UD PRN; Protocol PRN Reason: EtOH Withdrawal AWSS Score 8,9 Stop: 12/17/23 20:00 Losartan Potassium (Losartan Potassium 50 Mg Tab) 100 mg PO DAILY [facility] Stop: 12/18/23 08:59 Last Admin: 11/18/23 08:42 Dose: 100 mg Melatonin (Melatonin 3 Mg Tab) 3 mg PO HS PRN PRN Reason: Sleep Stop: 12/18/23 00:00 Last Admin: 11/18/23 00:18 Dose: 3 mg Metoprolol Succinate (Metoprolol Succ 25mg Ext Rel Tab) 25 mg PO QAM [facility] Stop: 12/18/23 09:14 Oxycodone HCl (Oxycodone Hcl Ir 5 Mg Tab (Immediate Release)) 5 mg PO Q4H PRN PRN Reason: Pain Stop: 12/01/23 17:01 Polyethylene Glycol (Polyethylene (Miralax) 17 Gm Pack) 17 gm PO DAILY PRN PRN Reason: Constipation Stop: 12/17/23 14:58 Thiamine HCl (Thiamine Hcl 100 Mg Tab) [facility] [place] Stop: 12/18/23 08:59 Last Admin: 11/18/23 08:41 Dose: 100 mg
--- NOTE | 2023-11-18 09:57 | Discharge Summary ---
Discharge Summary Date of Service November 18, 2023 Principal Dx & Hospital Course #1 = Principal Diagnosis (1) Complete heart block: Plan Patient was admitted to the hospital after he initially presented the emergency room with complete heart block. He was immediately seen by interventional cardiology and taken to procedure room and had a dual chamber pacemaker placed. His post procedure course was uneventful. On the morning of discharge she is awake alert and oriented. He had no pain. His rates are well-controlled. He was eating his diet. Communication with cardiology indicated that the pacemaker was functioning appropriately. Recommend starting on a beta-case for blood pressure and heart rate control. He was strongly recommended to stop drinking alcohol. He will continue his other medications as prescribed. Will follow-up with cardiology and his PCP outpatient. 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 Patient was seen at PCP office yesterday, recommended ED evaluation yesterday, patient chose to come today. Patient denies any symptoms/loss of consciousness/chest pain/palpitations/dizziness/shortness of breath. Patient denies any fever/cough/sore throat/abdominal pain/acute changes in his bowel or bladder habits/acute changes in his appetite. Patient reports compliance with medication but does not know what medications he takes. Hence outpatient chart was reviewed for current medications. He takes amlodipine 5 mg daily in the morning, losartan 100 mg daily in the morning, duloxetine 30 mg daily in the morning, allopurinol 100 mg daily in the morning. Plan of care discussed in detail with the patient, he voiced understanding and was agreeable. Discussed with Patient's RN, patient is being taken to [facility] for pacer placement. Patient reports not eating anything in the morning, hence is NPO. Full code as per my discussion with the patient. Admission Exam Per Admitting Provider See H&P Discharge Exam Constitutional: Alert, obese HEENT: Mucous membranes moist. Lungs: Clear to auscultation, decreased, no wheezes rales or rhonchi CV: S1-S2, regular, pacemaker site dressing dry and clean Abdomen: Soft, nontender, nondistended Extremities: No significant edema Neuro: No focal deficits, no signs of any significant alcohol withdrawal Psych: Cooperative, normal mood Updated Medication List Medication Instructions Recorded Confirmed Type allopurinol 100 mg tablet 100 mg PO DAILY 11/17/23 11/17/23 History amlodipine 5 mg tablet 5 mg PO DAILY 11/17/23 11/17/23 History colchicine 0.6 mg tablet 0.6 mg PO DAILY 11/17/23 11/17/23 History duloxetine 30 mg capsule,delayed 30 mg PO DAILY 11/17/23 11/17/23 History release losartan 100 mg tablet 100 mg PO DAILY 11/17/23 11/17/23 History metoprolol succinate 25 mg 25 mg PO QAM 30 days #30 tabs 11/18/23 Rx tablet,extended release 24 hr Hospital Stay Data Consultations 11/17/23 14:58 ED Decision to Admit Stat 11/17/23 15:04 Consult Cardiology Routine Procedures Performed Operation Date: 11/17/23 15:00 Actual Procedures p Pacer with A/V Leads (Dual) - Camron Jmaa MD s Cineradiography w/Routine Exam - Camron Jama MD Diagnostic Imagining Performed Reviewed imaging, laboratory and diagnostic studies. Pertinent findings as below. CBC within normal ranges Electrolytes within normal range, creatinine 1.1 Glucose 124 TSH 1.6 Chest x-ray postprocedure no evidence of pneumothorax Echocardiogram showed normal ejection fraction 60 to 65%, some mild left ventricular hypertrophy, no evidence of pulm hypertension Pending Results Patient Have Any Pending Studies at Discharge: No Discharge Instructions Given to Patient (Per Discharging Provider) Follow-up with cardiology as coordinated through their office Strongly recommend you cut back or eliminate all beer and alcohol Total Time Total Time Spent Total Time Spent (In Minutes): 32
[2023-11-18] MEDS: METOPROLOL SUCC 25MG EXT REL TAB PO SCH (11:07)
--- OUTSIDE RECORDS SUMMARY | 2023-11-18 14:02 | External Medical Summary | Summary of Care ---
Author Name Unknown Organization [facility] Address [address] [place] [address] Phone [phone] Care Team Providers Care Fashion Model Name Role Phone Kristi Gunn MD Primary Care Prov ider Reason for Visit * Reason Onset Date Comments Health Maintenance 09/12/2023 Encounter Details Date Type Department Care Team (Late st Contact Info) Description 09/12/[address] [phone] Kristi Gunn MD [address] [place] [address] [place] [address] Health Maintenance Allergies Active Allergy Reactions Criticality Noted Date Comments Compazine 06/27/2011 tartive dyskinesia documented as of this encounter (statuses as of 09/12/2023) Medications Medication Sig Dispensed Refills Start Date End Date Status DULoxetine HCl 30 MG Oral Capsule Delayed Release Particles (Cymbalta)Indications :Arthralgia, unspecified joint,Primary osteoarthritis, unspecified site Take 1 Capsule by mouth in the morning. Do not cut, crush or chew. 30 Capsule 5 02/01/2023 Active Losartan Potassium 100 MG Oral Tablet (Cozaar)Indications:H TN, goal below 130/80 Take 1 Tablet by mouth in the morning. 90 Tablet 1 07/10/2023 Active Allopurinol 100 MG Oral Tablet (Zyloprim)Indications :Elevated uric acid in blood Take 1 Tablet by mouth in the morning. 90 Tablet 1 07/10/2023 Active Colchicine 0.6 MG Oral TabletIndications:Nevahe vated uric acid in blood Take 1 Tablet by mouth in the morning. 90 Tablet 1 07/10/2023 Active documented as of this encounter (statuses as of 09/12/2023) Active Problems Problem Noted Date Diagnosed Date Primary osteoarthritis 09/19/2022 Chronic pain of both knees 12/15/2021 Idiopathic chronic gout of left ankle without to phus 10/08/2018 Obesity, Class I, BMI 30.0-34.9 (see actual BMI) 10/08/2018 Smoker 10/08/2018 HTN, goal below 130/80 12/23/2015 ADVANCE DIRECTIVE INFORMATION 06/09/2006 Overview: No, Advance Directive brochure given to patient. BMI 35.0-35.9,adult documented as of this encounter (statuses as of 09/12/2023) Resolved Problems Problem Noted Date Diagnosed Date Resolved Date GERD (gastroesophageal reflux disease) 02/04/2014 10/08/2018 FX LATERAL MALLEOLUS-CL 06/09/200603/06 Irritable bowel syndrome (IBS) 10/08/2018 Hemorrhoid 10/08/2018 documented as of this encounter (statuses as of 09/12/2023) Immunizations Name Administration Dates Next Due TDAP (age 11 and older)(Adacel) 03/28/2011 documented as of this encounter Social History Tobacco Use Types Packs/Day Years Used Date Smoking Tobacco: Some Days Cigarettes 0.5 11 Smokeless Tobacco: Current Chew Comments:age 29 Alcohol Use Standard Drinks/Week Comments Yes 0 (1 standard drink = 0.6 oz pur e alcohol) 5-6 vodka a night Sex and Gender Information Value Date Recorded Sex Assigned at Not on file Gender Identity Not on file Sexual Orientation Not on file Job Start Date Occupation Industry Not on file Not on file Not on file documented as of this encounter Miscellaneous Notes * Telephone Encounter - Seda LeighLUZ - 09/12/2023 10:44 AM EDT Care Gaps Comprehensive Care Outreach Last Office/Telemedicine Visit: 10/19/2022 (in office), Visit date not found (telemedicine) Next Office Visit: Visit date not found Hemoglobin AIC Results: Lab Results Component Value Date/Time [facility]IN [facility]C - [facility] 5.4 09/19/2022 04:33 PM BP Readings from Last 1 Encounters: 10/19/22 170/90 Reviewed Health Maintenance below: Health Maintenance Topic Date Due Pneumococcal Vaccine: Pediatrics (0 to 5 Years) and At-Risk Patients (6 to 64 Years) (1 of 2 - PCV)Never done Depression Screening Never done HIV Screening Never done Albumin/Creatinine Ratio Never done Hepatitis C Screening Never done Hepatitis B (1 of 3 - 19+ 3-dose series) Never done COLONOSCOPY-EVERY 5 YRS AGES 18-100 07/14/2016 DTaP,Tdap,and Td Vaccines (2 - Td or Tdap) 03/28/2021 Zoster Vaccines (1 of 2) Never done COVID-19 Vaccine ( - season) Never done GFR 09/20/2023 Ov Labs Colon 10 year Care Gap Outreach Action Taken: Left message documented in this encounter Plan of Treatment Health Maintenance Due Date Last Done Comments Pneumococcal Vaccine: Pediatrics (0 to 5 Years) and At-Risk Patients (6 to 64 Years) (1 of 2 - PCV) 11/15/1977 Depression Screening 1983 HIV Screening 11/15/1986 Albumin/Creatinine Ratio 11/15/1989 Hepatitis C Screening 11/15/1989 Hepatitis B (1 of 3 - 19+ 3-dose series) 11/15/1990 COLONOSCOPY-EVERY 5 YRS AGES 18-100 07/14/2016 07/14/2011, 07/14/2011 DTaP,Tdap,and Td Vaccines (2 - Td or Tdap) 03/28/2021 03/28/2011 Zoster Vaccines (1 of 2) 11/15/2021 COVID-19 Vaccine ( - season) 2023 GFR 09/20/2023 09/19/2022, 12/03, 10/08/2018, Additional history exists Influenza Vaccine (FLU shot) (Season Ended) 2024 Diabetes Screening 09/19/2025 09/19/2022, 0 09/19/2022, 12/15/2021, Additional history exists Lipid Panel 09/20/2027 09/19/2022, 05/0 11/2018, 04/07/2011 GARDASIL-HPV IMMUNIZATION SERIES Aged Out No longer eligible based on patient's age to complete this topic MENINGOCOCCAL (MENACTRA/MENVEO) Aged Out No longer eligible based on patient's age to complete this topic documented as of this encounter Medical Devices Not on filedocumented as of this encounter Care Teams Fashion Model Relationship Specialty Start Date End Date Kristi Gunn MD [address] [place] [address] CARIDAD Preciado [phone] PCP - General Family Medicine 10/18/18 documented as of this encounter
--- OUTSIDE RECORDS SUMMARY | 2023-11-18 14:02 | External Medical Summary | Summary of Care ---
Author Name Unknown Organization [facility] Address [address] [place] [address] Phone [phone] Care Team Providers Care Front Of House Manager Name Role Phone Kristi Gunn MD Primary Care Prov ider Reason for Visit * Reason Onset Date Comments Medication Refill 07/10/2023 Encounter Details Date Type Department Care Team (Late st Contact Info) Description 07/10/[address] [address] Kristi Gunn MD [address] [place], [place] [address] [id number] HTN, goal below 130/80; Elevated uric acid in blood Allergies Active Allergy Reactions Criticality Noted Date Comments Compazine 06/27/2011 tartive dyskinesia documented as of this encounter (statuses as of 10/02/2023) Medications Medication Sig Dispensed Refills Start Date End Date Status DULoxetine HCl 30 MG Oral Capsule Delayed Release Particles (Cymbalta)Indicati ons:Arthralgia, unspecified joint,Primary osteoarthritis, unspecified site Take 1 Capsule by mouth in the morning. Do not cut, crush or chew. 30 Capsule 5 02/01/2023 Active Losartan Potassium 100 MG Oral Tablet (Cozaar)Indication s:HTN, goal below 130/80 Take 1 Tablet by mouth in the morning. 90 Tablet 1 07/10/2023 Active Allopurinol 100 MG Oral Tablet (Zyloprim)Indicati ons:Elevated uric acid in blood Take 1 Tablet by mouth in the morning. 90 Tablet 1 07/10/2023 Active Colchicine 0.6 MG Oral TabletIndications: Elevated uric acid in blood Take 1 Tablet by mouth in the morning. 90 Tablet 1 07/10/2023 Active Allopurinol 100 MG Oral Tablet (Zyloprim)Indicati ons:Elevated uric acid in blood Take 1 Tablet by mouth in the morning. 30 Tablet 5 09/22/2022 07/10/2023 Discontinued (Refill) Colchicine 0.6 MG Oral TabletIndications: Elevated uric acid in blood Take 1 Tablet by mouth in the morning. 30 Tablet 5 09/22/2022 07/10/2023 Discontinued (Refill) Losartan Potassium 100 MG Oral Tablet (Cozaar)Indication s:HTN, goal below 130/80 Take 1 Tablet by mouth in the morning. 90 Tablet 1 10/19/2022 07/10/2023 Discontinued (Refill) documented as of this encounter (statuses as of 10/02/2023) Active Problems Problem Noted Date Diagnosed Date [...] as of this encounter (statuses as of 10/02/2023) Resolved Problems Problem Noted Date Diagnosed Date Resolved Date GERD (gastroesophageal reflux disease) 02/04/2014 10/08/2018 FX LATERAL MALLEOLUS-CL 06/09/200603/06 Irritable bowel syndrome (IBS) 10/08/2018 Hemorrhoid 10/08/2018 documented as of this encounter (statuses as of 10/02/2023) Immunizations Name Administration Dates Next Due TDAP [...] encounter Miscellaneous Notes * Telephone Encounter - Kaelyn Bah OSA - 10/02/2023 10:19 AM EDTSigned Prescriptions: Disp Refills Losartan Potassium 100 MG Oral Tablet (Coz*90 Tab*1 Sig: Take 1 Tablet by mouth in the morning.Authorizing Provider: LV PERRY Allopurinol 100 MG Oral Tablet (Zyloprim) 90 Tab*1 Sig: Take 1 Tablet by mouth in the morning.Authorizing Provider: LV PERRY Colchicine 0.6 MG Oral Tablet 90 Tab*1 Sig: Take 1 Tablet by mouth in the morning.Authorizing Provider: LV PERRY * Telephone Encounter - Kaelyn Bah OSA - 10/02/2023 10:19 AM EDT I left message on patient's VM to call me (RE: I believe this patient is following with Dr Loya. administrative assistant front desk: patient also due for appointment and please update PCP. * Telephone Encounter - Kristi Gunn MD - 07/10/2023 1:08 PM EST Pending Prescriptions: Disp Refills Losartan Potassium 100 MG Oral Tablet (Coz*90 Tab*1 Sig: Take 1 Tablet by mouth in the morning. Allopurinol 100 MG Oral Tablet (Zyloprim) 90 Tab*1 Sig: Take 1 Tablet by mouth in the morning. Colchicine 0.6 MG Oral Tablet 90 Tab*1 Sig: Take 1 Tablet by mouth in the morning. * Telephone Encounter - Kristi Gunn MD - 07/10/2023 1:06 PM EST I believe this patient is following with Dr Loya. administrative assistant front desk: patient also due for appointment and please update PCP. * Telephone Encounter - Francesca Marroquin RN - 07/10/2023 12:38 PM ESTPending Prescriptions: Disp Refills Losartan Potassium 100 MG Oral Tablet (Coz*90 Tab*1 Sig: Take 1 Tablet by mouth in the morning. Allopurinol 100 MG Oral Tablet (Zyloprim) 90 Tab*1 Sig: Take 1 Tablet by mouth in the morning. Colchicine 0.6 MG Oral Tablet 90 Tab*1 Sig: Take 1 Tablet by mouth in the morning. * Telephone Encounter - Lauren Ramirez OSA - 07/10/2023 12:19 PM EST Did you pend patient's preferred pharmacy and medication before forwarding?yes Pharmacy: [facility] [id number] Pending Prescriptions: Disp Refills Losartan Potassium 100 MG Oral Tablet (Co*90 Tab*1 Sig: Take 1 Tablet by mouth in the morning. Allopurinol 100 MG Oral Tablet (Zyloprim) 30 Tab*5 Sig: Take 1 Tablet by mouth in the morning. Colchicine 0.6 MG Oral Tablet 30 Tab*5 Sig: Take 1 Tablet by mouth in the morning. Last Visit: 10/19/2022 (in office), Visit date not found (telemedicine) Next Visit: Visit date not found If no future appointments scheduled, and last appointment is greater than a year ago, please schedule patient for a follow-up appointment Last date the medication was ordered: 10.19.22 Is this request for a controlled substance?No Urine Drug Screen:No results found for this or any previous visit. Patient Phone Numbers Labs: Lab Results Component Value Date/Time CREAT 0.9 09/19/2022 04:33 PM CREAT 0.9 10/08/2018 03:33 PM POTASSIUM 3.3 (L) 09/19/2022 04:33 PM POTASSIUM 4.4 10/08/2018 03:33 PM TSH 3.64 09/19/2022 04:33 PM TSH 1.90 03/28/2011 11:45 AM LDLCALC 154 (H) 09/19/2022 04:33 PM LDLCALC 110 10/08/2018 03:33 PM LDLDIRECT NOT APPLICABLE 10/08/2018 03:33 PM ALT 18 12/15/2021 03:09 PM ALT 20 10/08/2018 03:33 PM HGBA1C 5.4 09/19/2022 04:33 PM documented in this encounter Plan of Treatment Health Maintenance Due Date Last Done Comments Pneumococcal Vaccine: Pediatrics (0 to 5 Years) and At-Risk Patients (6 to 64 Years) (1 of 2 - PCV) 11/15/1977 Depression Screening 1983 HIV Screening 11/15/1986 Albumin/Creatinine Ratio 11/15/1989 Hepatitis C Screening 11/15/1989 Hepatitis B (1 of 3 - 19+ 3-dose series) 11/15/1990 Cologuard 11/15/2016 Colonoscopy 11/15/2016 07/14/2011 Colorectal Cancer Screening 11/15/2016 Fecal Occult Blood Test 11/15/2016 Sigmoidoscopy 11/15/2016 DTaP,Tdap,and Td Vaccines (2 - Td or Tdap) 03/28/2021 03/28/2011 Zoster Vaccines (1 of 2) 11/15/2021 COVID-19 Vaccine ( season) 2023 GFR 09/20/2023 09/19/2022, 12/03, 10/08/2018, Additional history exists Influenza Vaccine (FLU shot) (Season Ended) 2024 Diabetes Screening 09/19/2025 09/19/2022, 0 09/19/2022, 12/15/2021, Additional history exists Lipid Panel 09/20/2027 09/19/2022, 0511/2018, 04/07/2011 RETIRED - COLONOSCOPY-EVERY 5 YRS AGES 18-100 Discontinued 07/14/2011, 07/14/2011 GARDASIL-HPV IMMUNIZATION SERIES Aged Out No longer eligible based on patient's age to complete this topic MENINGOCOCCAL (MENACTRA/MENVEO) Aged Out No longer eligible based on patient's age to complete this topic documented as of this encounter Medical Devices Not on filedocumented as of this encounter Visit Diagnoses Diagnosis HTN, goal below 130/80 Unspecified essential hypertension Elevated uric acid in blood Other abnormal blood chemistry documented in this encounter Care Teams Front Of House Manager Relationship Specialty Start Date End Date Kristi Gunn MD [address] [place] [address] [place]ado [phone] PCP - General Family Medicine 10/18/18 documented as of this encounter
--- OUTSIDE RECORDS SUMMARY | 2023-11-18 14:02 | External Medical Summary | Summary of Care ---
Author Name Unknown Organization [facility] Address [address] [place] [address] Phone [phone] Care Team Providers Care Quantitative Associate Name Role Phone Kristi Gunn MD Primary Care Prov ider Reason for Visit * Reason Onset Date Comments Medication Refill 07/10/2023 Encounter Details Date Type Department Care Team (Late st Contact Info) Description 07/10/[address] [address] Kristi Gunn MD [address] [place], [place] [id number] [id number] HTN, goal below 130/80; Elevated uric acid in blood Allergies Active Allergy Reactions Criticality Noted Date Comments Compazine 06/27/2011 tartive dyskinesia documented as of this encounter (statuses as of 07/10/2023) Medications Medication Sig Dispensed Refills Start Date [...] as of this encounter (statuses as of 07/10/2023) Active Problems Problem Noted Date Diagnosed Date [...] as of this encounter (statuses as of 07/10/2023) Resolved Problems Problem Noted Date Diagnosed Date Resolved Date GERD (gastroesophageal reflux disease) 02/04/2014 10/08/2018 FX LATERAL MALLEOLUS-CL 06/09/200603/06 Irritable bowel syndrome (IBS) 10/08/2018 Hemorrhoid 10/08/2018 documented as of this encounter (statuses as of 07/10/2023) Immunizations Name Administration Dates Next Due TDAP [...] encounter Miscellaneous Notes * Telephone Encounter - Kristi Gunn MD [...] this patient is following with Dr Loya. test desk supervisor: patient also due for appointment and please [...] preferred pharmacy and medication before forwarding?yes Pharmacy: [facility] [address] [place] [address] Pending Prescriptions: Disp Refills Losartan Potassium 100 [...] Health Maintenance Due Date Last Done Comments Hepatitis B (1 of 3 - 3-dose series) 1971 COVID-19 Vaccine (#1) 05/17/1972 Pneumococcal Vaccine: Pediatrics (0 to 5 Years) and At-Risk Patients (6 to 64 Years) (1 - PCV) 11/15/1977 Depression Screening 1983 HIV Screening 11/15/1986 Albumin/Creatinine Ratio 11/15/1989 Hepatitis C Screening 11/15/1989 COLONOSCOPY-EVERY 5 YRS AGES 18-100 07/14/2016 07/14/2011, 07/14/2011 DTaP,Tdap,and Td Vaccines (2 - Td or Tdap) 03/28/2021 03/28/2011 Zoster Vaccines (1 of 2) 11/15/2021 Influenza Vaccine (FLU shot) (#1) 2023 GFR 09/20/2023 09/19/2022, 12/03, 10/08/2018, Additional history exists Diabetes Screening 09/19/2025 09/19/2022, 0 09/19/2022, 12/15/2021, [...] chemistry documented in this encounter Care Teams Quantitative Associate Relationship Specialty Start Date End Date Kristi Gunn MD [address] [place] [address] [place] Preciado [phone] PCP - General Family Medicine 10/18/18 documented as of this encounter
[2023-11-18] MEDS ORDERED: GABAPENTIN 600 MG TAB PO SCH (20:15)
[2023-11-19] MEDS ORDERED: GABAPENTIN 400 MG CAP PO SCH (20:15)
[2023-11-20] MEDS ORDERED: GABAPENTIN 100 MG CAP PO SCH (20:15)
== END 2023-11-18 12:43 | disposition home or self-care (01) | DRG 244 ==
LOC: ED 12:18 → CC 15:16 → 2S 15:16 → SUATTDRO 15:49